=== PATIENT | male | born 1990 | race Caucasian/White ===

== ENCOUNTER 2016-12-19 13:53 | Emergency (ER) | payer BC ==
[~2016-12-19] VITALS: Ht 177.8 cm; Wt 107.4 kg
[~2016-12-19 13:53] MED LIST: AZITHROMYCIN250 MG PO; BACTRIM,SEPT1 TABLET PO; MOTRIN800 MG PO; PHENERGAN-CODE120 ML PO; PROVENTIL HFA6.7 GM IH; SYNTHROID300 MCG PO; THYROID MEDICATION; TIROSINT50 MCG PO; VICODIN 5-3001 EACH PO
[2016-12-19] MEDS ORDERED: LEVO-T200 MCG PO (14:51)
[2016-12-19] MEDS ORDERED: CLEOCIN300 MG PO (15:49)
[2016-12-19 16:02] VITALS: BP 137/95
== END 2016-12-19 16:07 | disposition home or self-care (01) ==
LOC: EME 13:53
DX: L05.01 Pilonidal cyst with abscess (principal)
CPT/HCPCS: 99281; 99284

== ENCOUNTER 2017-03-21 13:19 | Emergency (ER) | payer OTHER, BC ==
[~2017-03-21] VITALS: Ht 177.8 cm; Wt 111.0 kg
[~2017-03-21 13:19] MED LIST changes: +CLEOCIN300 MG PO; +LEVO-T200 MCG PO
[2017-03-21 15:43] VITALS: BP 127/77
== END 2017-03-21 15:43 | disposition home or self-care (01) ==
LOC: EME 13:19
DX: S00.31XA Abrasion of nose, initial encounter (principal); W22.8XXA Striking against or struck by other objects, initial encounter; Y92.69 Other specified industrial and construction area as the place of occurrence of the external cause; Y93.89 Activity, other specified; Y99.0 Civilian activity done for income or pay
CPT/HCPCS: 99281; 99282

== ENCOUNTER 2018-02-22 11:02 | Emergency (ER) | payer OTHER ==
[~2018-02-22] VITALS: Ht 177.8 cm; Wt 111.7 kg
[2018-02-22] MEDS ORDERED: NAPROSYN500 MG PO (13:25)
[2018-02-22] MEDS ORDERED: CLINDAMYCIN HC300 MG PO (13:25)
[2018-02-22 13:42] VITALS: BP 139/74
== END 2018-02-22 13:43 | disposition home or self-care (01) ==
LOC: EME 11:02
PROC: 0H98X0Z Drainage of Buttock Skin with Drainage Device, External Approach (ICD-10-PCS; principal; 2018-02-22)
DX: L02.31 Cutaneous abscess of buttock (principal); Z87.2 Personal history of diseases of the skin and subcutaneous tissue; Z90.49 Acquired absence of other specified parts of digestive tract
CPT/HCPCS: 87070; 87075; 87076; 87205; 99281; 99284

== ENCOUNTER 2018-02-24 17:13 | Emergency (ER) | payer OTHER ==
[~2018-02-24] VITALS: Ht 177.8 cm; Wt 110.5 kg
[~2018-02-24 17:13] MED LIST changes: +CLINDAMYCIN HC300 MG PO; +NAPROSYN500 MG PO
[2018-02-24 17:51] VITALS: BP 112/79
== END 2018-02-24 17:55 | disposition home or self-care (01) ==
LOC: EME 17:13
DX: L02.31 Cutaneous abscess of buttock (principal); Z48.00 Encounter for change or removal of nonsurgical wound dressing; Z98.890 Other specified postprocedural states
CPT/HCPCS: 99281; 99283